=== PATIENT | female | born 1995 | race Caucasian/White ===

== ENCOUNTER 2016-07-25 13:48 | Emergency (ER) | payer OTHER ==
[2016-07-25 13:54] VITALS: RESP 16; TEMP 97.7
--- NOTE | 2016-07-25 14:14 | EDPHY ---
H & P Stated Complaint: Left Foot Numbness Time Seen by Provider: 07/25/16 14:14 - Personal History Current Tetanus/Diphtheria Vaccine: Yes Current Tetanus Diphtheria and Acellular Pertussis (TDAP): Yes - Medical/Surgical History Hx Asthma: No Hx Chronic Respiratory Disease: No Hx Diabetes: No Hx Cardiac Disease: No Hx Renal Disease: No Hx Cirrhosis: No Hx Alcoholism: No Hx HIV/AIDS: No Hx Splenectomy or Spleen Trauma: No Other PMH: PSH: L knee;. PMH: denies - Social History Smoking Status: Current some day smoker Constitutional: Initial Vital Signs Temperature (C) 36.5 C 07/25/16 13:50 Heart Rate 62 07/25/16 13:50 Respiratory Rate 16 07/25/16 13:50 Blood Pressure 129/71 H 07/25/16 13:50 O2 Sat (%) 97 07/25/16 13:50 O2 Delivery Mode Room Air Allergies/Adverse Reactions: No Known Allergies Allergy (Unverified 05/13/15 12:25) Home Medications: Medication Instructions Recorded Lo Loestrin Fe 1-10 Tablet 05/13/15 Medical Decision Making ED Course/Re-evaluation: CHIEF COMPLAINT: HISTORY OF PRESENT ILLNESS: must have 4 elements: Location, Quality, Severity , Duration, Timing, Context, Modifying Factors, Associated Signs and Symptoms REVIEW OF SYSTEMS: A 10 point review of systems was performed and is negative with the exception of the elements mentioned in the history of present illness. PHYSICAL EXAM: HR, BP, O2 Sat, RR. Temp noted General Appearance: Alert, well hydrated, appropriate, and non-toxic appearing. Head: Atraumatic without scalp tenderness or obvious injury Eyes: Pupils equal, round, reactive to light and accommodation, EOMI, no trauma , no injection. Ears: Clear bilaterally, no perforation, normal landmarks Nose: Atraumatic, no rhinorrhea, clear. Throat: There is no erythema or exudates, no lesions, normal tonsils, mucus membranes moist. Neck: Supple, 2+ carotid upstroke, nontender, no lymphadenopathy. Respiratory: No retractions, no distress, no wheezes, and no accessory muscle use. Lungs are clear to auscultation bilaterally. Cardiovascular: Regular rate and rhythm, no murmurs, rubs, or gallops. Bilateral carotid, radial, dorsalis pedis, and posterior tibial pulses intact. Good capillary refill all extremities. Gastrointestinal: Abdomen is soft, nontender, non-distended, no masses, no rebound, no guarding, no peritoneal signs. Musculoskeletal: Normal active ROM of all extremities, atraumatic. Neurological: Alert, appropriate, and interactive. The patient has normal DTRs and non-focal cranial nerves, motor, sensory, and cerebellar exam. Skin: No rashes, good turgor, no nodules on palpation. Past medical history: Past surgical history: Family history: Social history: DIAGNOSTICS/PROCEDURES/CRITICAL CARE TIME: DIFFERENTIAL DIAGNOSIS: MEDICAL DECISION MAKING: Departure - Departure Condition: Good Referrals: NONE *PRIMARY CARE P,. [Primary Care Provider] - As per Instructions
[2016-07-25 15:26] VITALS: BP 142/85; PULSE 76; O2SAT 98
--- NOTE | 2016-07-25 15:29 | EDPHY ---
H & P Stated Complaint: Left Foot Numbness Time Seen by Provider: 07/25/16 14:14 HPI/ROS: CHIEF COMPLAINT: left foot numbness and weakness HISTORY OF PRESENT ILLNESS: 21-year-old female presents emergency department complaining of left foot numbness and weakness. Patient reports yesterday she was squatting down tiling for 3 hours, she started walking home and tripped over her foot multiple times and was unable to dorsiflex her foot. Patient woke up this morning with a continued problem that is not improving. She denies previous injuries like this, no trauma. She denies back pain, no loss of control of her bowel or bladder, no saddle anesthesias. Patient had an ACL and meniscus surgery on this knee 7 years ago and has had no problems. REVIEW OF SYSTEMS: A comprehensive 10 point review of systems is otherwise negative aside from elements mentioned in the history of present illness. Source: Patient Exam Limitations: No limitations - Personal History Current Tetanus/Diphtheria Vaccine: Yes Current Tetanus Diphtheria and Acellular Pertussis (TDAP): Yes - Medical/Surgical History Hx Asthma: No Hx Chronic Respiratory Disease: No Hx Diabetes: No Hx Cardiac Disease: No Hx Renal Disease: No Hx Cirrhosis: No Hx Alcoholism: No Hx HIV/AIDS: No Hx Splenectomy or Spleen Trauma: No Other PMH: PSH: L knee;. PMH: denies - Social History Smoking Status: Current some day smoker - Physical Exam Exam: GEN: Awake, alert, oriented, no acute distress RESP: nl resp effort MSK: No lumbar spine tenderness to palpation, no SI joint tenderness. Left foot with 2+ pedal pulses, cap refill less than 2 seconds, weakness with dorsiflexion of foot and eversion, normal inversion and plantar flexion, subjective tingling to lateral cee and webspace between 1st and 2nd toe. Neuro: Grossly unremarkable, 2/4 deep tendon reflexes patellar and Achilles SKIN: No break in skin Constitutional: Initial Vital Signs Temperature (C) 36.5 C 07/25/16 13:50 Heart Rate 62 07/25/16 13:50 Respiratory Rate 16 07/25/16 13:50 Blood Pressure 129/71 H 07/25/16 13:50 O2 Sat (%) 97 07/25/16 13:50 O2 Delivery Mode Room Air Allergies/Adverse Reactions: No Known Allergies Allergy (Unverified 05/13/15 12:25) Home Medications: Medication Instructions Recorded Lo Meliza Fe 1-10 Tablet 05/13/15 Medical Decision Making ED Course/Re-evaluation: 21-year-old female presents with a left foot drop weakness to eversion and dorsiflexion of her left foot after being in a squatting position for a prolonged amount of time yesterday. Patient has no evidence spinal abscess or cauda equina syndrome. Think the patient has foot drop is due to a peroneal nerve palsy. The patient has been placed in a Avery boot and given Neurology to follow up with. She is given return precautions for any neurovascular compromise, new symptoms or concerns. Differential Diagnosis: Diagnosis considered but not limited to peroneal nerve palsy, cauda equina syndrome, spinal abscess, lumbar radiculitis, CVA Departure - Departure Disposition: Home, Routine, Self-Care Clinical Impression: Peroneal nerve palsy Qualifiers: Laterality: left Qualified Code(s): G57.32 - Lesion of lateral popliteal nerve , left lower limb Condition: Good Instructions: Foot Drop (ED) Additional Instructions: Wear walking boot at all times until you follow up with the neurologist, call today to schedule this appointment to be seen at 1st available appointment. Referrals: Darin Gambino MD [Medical Doctor] - As per Instructions (Neurologist pulmonologist ) Stand Alone Forms: School Excuse, Work Excuse
== END 2016-07-25 16:06 | disposition home or self-care (01) ==
DX: G57.32 Lesion of lateral popliteal nerve, left lower limb (principal); F17.200 Nicotine dependence, unspecified, uncomplicated
CPT/HCPCS: L4386